=== PATIENT | female | born 1990 | race Caucasian/White ===

== ENCOUNTER 2019-08-01 07:29 | Emergency (ER) | payer SELFPAY ==
[2019-08-01 08:04] VITALS: BP 109/75
--- NOTE | 2019-08-01 09:15 | UC ---
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 Subjective fever. Not improving with rest and symptomatic treatment. Appetite normal, no gi symptoms. - History of Current Complaint Chief Complaint: UCRespiratory Stated Complaint: COLD SYMP Time Seen by Provider: 08/01/19 09:06 Hx Obtained From: Patient Hx Last Menstrual Period: 07/24/2019 Onset/Duration: Gradual Onset, Lasting Days - 10 Severity: Moderate Pain Intensity: 0 Cough: Productive - green sputum Associated Signs & Symptoms: Positive: Dysphagia, Sinus Discomfort, Nasal Discharge, Fever - Epiglottits Risk Factors Epiglottis Risk Factors: Negative - Allergies/Home Medications Allergies/Adverse Reactions: Allergies Allergy/AdvReac Type Severity Reaction Status Date / Time No Known Allergies Allergy Verified 08/01/19 07:58 Home Medications: Home Medications D-Methorphan/PE/Acetaminophen [Daytime Cold Multi-Symp Gelcap] 2 each PO BID PRN 08/01/19 [History Confirmed 08/01/19] Phenylephrine/Dm/Acetaminop/GG [Mucinex Fast-Max Cold-Flu Liq] 180 ml PO Q4H PRN 08/01/19 [History Confirmed 08/01/19] PMH/Surg Hx/FS Hx/Imm Hx Previously Healthy: Yes - Surgical History Surgical History: None - Family History Known Family History: Positive: Non-Contributory - Social History Occupation: Employed Full-time Alcohol Use: Occasionally Substance Use Type: None Smoking Status (MU): Never Smoked Tobacco Review of Systems All Other Systems Reviewed And Are Negative: Yes Constitutional: Positive: Fever, Fatigue Skin: Positive: Negative Eyes: Positive: Negative ENT: Positive: Sore Throat, Ear Ache, Nasal Discharge, Sinus Congestion Respiratory: Positive: Cough. Negative: Shortness Of Breath Cardiovascular: Positive: Chest Pain. Negative: Palpitations Gastrointestinal: Positive: Negative Genitourinary: Positive: Negative Motor: Positive: Negative Neurovascular: Positive: Negative Musculoskeletal: Positive: Negative Neurological/Mental Status: Positive: Headache Psychological: Positive: Negative Is Patient Immunocompromised?: No Physical Exam Triage Information Reviewed: Yes Appearance: Ill-Appearing - looks fatigued and mildly unwell Vital Signs: Initial Vital Signs Temp 98.8 F 08/01/19 08:00 Pulse 89 08/01/19 08:00 Resp 15 08/01/19 08:00 BP 109/75 08/01/19 08:00 Pulse Ox 100 08/01/19 08:00 Eyes: Positive: Conjunctiva Clear ENT: Positive: Pharyngeal erythema, Nasal congestion, Sinus tenderness. Negative: Tonsillar swelling, Tonsillar exudate Dental Exam: Normal Neck: Positive: Supple, Nontender, No Lymphadenopathy Respiratory: Positive: Lungs clear, Normal breath sounds Cardiovascular: Positive: RRR, No Murmur Musculoskeletal Exam: Normal Neurological Exam: Normal Psychological Exam: Normal Skin Exam: Normal Throat Pain/Nasal Course/Dx - Course Course Of Treatment: augmentin for treatment of sinusitis - Differential Dx/Diagnosis Differential Diagnosis/HQI/PQRI: Pharyngitis, Tonsillitis, URI, Other - bronchitis Provider Diagnosis: Sinusitis Discharge ED - Sign-Out/Discharge Documenting (check all that apply): Patient Departure All imaging exams completed and their final reports reviewed: No Studies - Discharge Plan Condition: Stable Disposition: HOME Prescriptions: Amoxicillin/Clavulanate TAB* [Augmentin TAB 875*] 875 mg PO BID #20 tab Patient Education Materials: Sinusitis (ED) Referrals: No Primary Care Phys,NOPCP [Primary Care Provider] - Additional Instructions: Begin augmentin for treatment of sinusitis. Please take the full course of antibiotics. Pseudoephedrine 30mg every 6 hours can help to relieve sinus drainage. Use normal saline 9Ocean spray) to relieve sinus pressure and promote sinus drainage. Flonase spray 2 sprys to both nostrils can also be helpful. - Billing Disposition and Condition Condition: STABLE Disposition: Home
== END 2019-08-01 09:27 | disposition home or self-care (01) ==
LOC: UCCORT 07:29
DX: J32.9 Chronic sinusitis, unspecified (principal); J02.9 Acute pharyngitis, unspecified; R07.9 Chest pain, unspecified
CPT/HCPCS: 99202; G0463